=== PATIENT | female | born 1935 ===

== ENCOUNTER 2018-11-04 11:55 | Outpatient (CLI) | payer OTHER | END 2018-11-04 11:56 | disposition home or self-care (01) | LOC: C.LAB 11:55 | DX: E03.9 Hypothyroidism, unspecified (principal) ==

== ENCOUNTER 2018-11-23 10:18 | Outpatient (CLI) | payer OTHER | END 2018-11-23 10:19 | disposition home or self-care (01) | LOC: C.LAB 10:18 | DX: E03.9 Hypothyroidism, unspecified (principal); R53.83 Other fatigue; R06.02 Shortness of breath ==